=== PATIENT | female | born 1975 | race Caucasian/White ===

== ENCOUNTER 2018-01-19 13:14 | Emergency (ER) | payer BC ==
--- NOTE | 2018-01-19 13:26 | EDM.PDOC ---
ED HPI GENERAL MEDICAL PROBLEM - General Chief Complaint: Lower Extremity Injury/Pain Stated Complaint: [facility] Time Seen by Provider: 01/19/18 13:15 Source of Information: Reports: Patient, EMS History Limitations: Reports: No Limitations - History of Present Illness INITIAL COMMENTS - FREE TEXT/NARRATIVE: Patient is a 42-year-old female who presents ED via ambulance complaining of right ankle pain. Patient was hiking slipped and felt 3 pops to her right ankle with deformity and increased swelling. EMS was notified and splint applied. Pain is isolated to the right ankle. She has some superficial abrasions noted to the right ankle as well. Tetanus status is up-to-date. Denies any pain to the knee, upper leg, or hip. She denies hitting her head or injuring her neck or back. She has a history of restless leg syndrome and is on gabapentin at night. Last ate at 10:30 this morning. Denies any additional past medical history and/or pressure medications. She denies being . Right Ankle Pain Score (Numeric/FACES): 5 - Related Data Allergies Allergy/AdvReac Type Severity Reaction Status Date / Time amoxicillin [From Augmentin] Allergy Other Verified 01/19/18 13:20 clavulanic acid Allergy Other Verified 01/19/18 13:20 [From Augmentin] Home Meds: Home Meds Gabapentin [Neurontin] 600 mg PO BEDTIME 01/19/18 [History] Past Medical History Neurological History: Reports: Other (See Below) Other Neuro History: restless leg Social & Family History - Family History Family Medical History: Noncontributory Review of Systems - Review of Systems Review Of Systems: ROS reveals no pertinent complaints other than HPI. ED EXAM, GENERAL - Physical Exam Exam: See Below Exam Limited By: No Limitations General Appearance: Alert, WD/WN, No Apparent Distress Ears: Hearing Grossly Normal Nose: Normal Inspection Throat/Mouth: Normal Voice, No Airway Compromise Neck: Normal Inspection, Supple Respiratory/Chest: No Respiratory Distress, No Accessory Muscle Use Cardiovascular: Normal Peripheral Pulses, Regular Rate, Rhythm Peripheral Pulses: 3+: Dorsalis Pedis (R) Extremities: Other (Splint noted to the right lower extremity with obvious deformity to the ankle with increased swelling and some mild ecchymosis. No sensory changes noted. Able to wiggle her toes. Pain is isolated to the medial and lateral malleolus. No pain to the tibia-fibula approximately. No pain to the right knee, upper leg, and hip. Superficial abrasion noted to the medial aspect of the right ankle. No obvious open fracture present.) Neurological: Alert, Oriented, CN II-XII Intact, Normal Cognition, No Motor/ Sensory Deficits Psychiatric: Normal Affect, Normal Mood Skin Exam: Warm, Dry, Intact ED TRAUMA EXTREMITY PROCEDURES - Splinting Right Lower Extremity Pre-Procedure NV Status: Normal Post-Procedure NV Status: Normal Splint Material: Fiberglass Splint Design: Stirrup, Posterior Applied & Form Fitted By: Provider, Nurse, Tech Provider Post-Splint Application NV Check: NV Status Normal, Good Position Complications: No Course - Vital Signs Last Recorded V/S: Last Vital Signs Temp 98.4 F 01/19/18 13:22 Pulse 71 01/19/18 13:22 Resp 16 01/19/18 13:22 BP 131/92 H 01/19/18 13:22 Pulse Ox 99 01/19/18 13:22 - Orders/Labs/Meds Orders: Active Orders 24 hr Category Date Time Status Ankle Min 3V Rt [CR] Stat Exams 01/19/18 13:20 Taken Ankle Min 3V Rt [CR] Stat Exams 01/19/18 14:54 Taken Meds: Medications Discontinued Medications Generic Name Dose Route Start Last Admin Trade Name Freq PRN Reason Stop Dose Admin Cefazolin Sodium 2,000 mg 01/19/18 14:51 Ancef IVPUSH 01/19/18 14:52 ONETIME ONE Hydromorphone HCl 0.5 mg 01/19/18 15:01 01/19/18 15:20 Dilaudid IVPUSH 01/19/18 15:02 0.5 mg ONETIME ONE Administration Cefazolin Sodium 2,000 mg/ 50 mls @ 100 mls/hr 01/19/18 14:59 Sodium Chloride IV 01/19/18 15:28 ONETIME ONE Sodium Chloride 1,000 mls @ 125 mls/hr 01/19/18 15:15 01/19/18 15:20 Normal Saline IV 125 mls/hr ASDIRECTED ILA Administration Cefazolin Sodium/Dextrose 2 gm 50 mls @ 100 mls/hr 01/19/18 15:18 05/27/18 15 :29 / Premix IV 01/19/18 15:47 100 mls/hr ONETIME ONE Administration - Re-Assessments/Exams Free Text/Narrative Re-Assessment/Exam: IV established by EMS. She was administered Dilaudid 1 mg enroute. X-ray of the right ankle will be obtained. 01/19/18 13:48 X-ray of the right ankle revealed distal fibular spiral fracture with moderate displacement. Fracture noted to the lateral malleolus with minimal displacement as well. 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 Patient is from [place].X -rays reviewed with . Suggests splinting and having patient followup with Ortho in [place] to have repaired. Posterior/stirup applied with no complications. Unable to apply sleeve thus triple antibiotic ointment and nonadherent dressing applied to abrasion site prior to padding. 1423 I have spoken with Dr. Boles at [facility]. He suggested admission with surgery in the a.m. Requested Ancef 2 grams IV with abrasion to fracture site. Ordered ancef 2 grams IV and NS 125ml/hr. Re-x-ray after splinting: Did not reveal any significant changes. Ambulance notified. All paper work complete. Departure - Departure Time of Disposition: 14:58 Disposition: DC/Tfer to Acute Hospital 02 Condition: Good Clinical Impression: Abrasion of skin Ankle fracture, bimalleolar, closed Qualifiers: Encounter type: initial encounter Laterality: right Qualified Code(s): S82.841A - Displaced bimalleolar fracture of right lower leg, initial encounter for closed fracture - Discharge Information Referrals: PCP,None [Ordering Only Provider] - Forms: ED Department Discharge - My Orders Last 24 Hours: My Active Orders 01/19/18 13:20 Ankle Min 3V Rt [CR] Stat 01/19/18 14:54 Ankle Min 3V Rt [CR] Stat - Assessment/Plan Last 24 Hours: My Active Orders 01/19/18 13:20 Ankle Min 3V Rt [CR] Stat 01/19/18 14:54 Ankle Min 3V Rt [CR] Stat
[2018-01-19] MEDS ORDERED: ceFAZolin 1,000 MG VIAL IVPUSH ONE (14:51)
[2018-01-19] MEDS: Sodium Chloride 0.9% 1,000 ML IV SCH (15:20)
[2018-01-19] MEDS: HYDROmorphone 0.5 MG/0.5 ML SYRINGE IVPUSH ONE (15:20)
[2018-01-19] MEDS: ceFAZolin 2 GM in Premix Bag 1 BAG IV ONE (15:29)
--- NOTE | 2018-01-21 13:21 | CR ---
Right ankle: Three views of the right ankle were obtained. Ankle fracture is again seen. Fiberglass cast or splint is in place. Ankle mortise is asymmetric. Impression: 1. Ankle fracture is again noted with ankle mortise remaining asymmetric. 2. Fiberglass cast or splint is in place. Diagnostic code #3
--- NOTE | 2018-01-21 13:21 | CR ---
Right ankle: Three views of the right ankle were obtained. Comparison: No prior ankle study. Fracture is identified within the distal fibular shaft. Fracture also noted off the anterior distal tibia as well as off the medial malleolus. Posterior malleolus is intact. Plantar spur is seen. Ankle mortise is unstable. Soft tissue swelling is seen. Impression: 1. Ankle fractures as noted above causing an unstable ankle mortise. 2. Soft tissue swelling. Diagnostic code #3
== END 2018-01-19 15:29 ==
LOC: JD.ED 13:14
DX: S82.841A Displaced bimalleolar fracture of right lower leg, initial encounter for closed fracture (principal); W01.0XXA Fall on same level from slipping, tripping and stumbling without subsequent striking against object, initial encounter; Z88.1 Allergy status to other antibiotic agents
CPT/HCPCS: 29515; 73610; 96374; 96375; 99285; J0690; J1170; J7040; 29505; 99284